=== PATIENT | male | born 1995 | race Caucasian/White ===

== ENCOUNTER 2021-03-29 14:47 | Emergency (ER) | payer MEDICAID ==
[~2021-03-29] VITALS: Ht 165.1 cm; Wt 70.3 kg
[2021-03-29 14:58] VITALS: BP_SYST 136
--- NOTE | 2021-03-29 15:01 | NUR ---
Patient to ER bed 04 to gown for evaluation. Side rails up.
--- NOTE | 2021-03-29 15:36 | NUR ---
PATIENT TO ED AT THIS TIME FOR FREQUENT BOUGHTS OF ANXIETY FOR OVER A LONG PERIOD OF TIME. PATIENT DENIES SI, HI OR HALLUCINATIONS. PATIENT STATES THAT HE HAS NOTICIABLE TREMORS DUE TO EXTREME ANXIETY. PATIENT HAS LOST SEVERAL FAMILY MEMBERS OVER A SHORT PERIOD OF TIME DUE TO COVID. 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 WILL CONTINUE TO MONITOR PATIENT.
[2021-03-29] MEDS ORDERED: LORazepam 1 MG TABLET PO ONE (15:45)
[2021-03-29] MEDS ORDERED: ALPR0.5T PO (17:28)
--- NOTE | 2021-03-29 17:29 | NUR ---
PATIENT REFUSED ATIVAN AND GIVEN 0.5 OF XANAX. PATIENT STATES SHE HAD A VERY BAD REACTION TO ATIVAN WHEN TAKEN BEFORE. XANAX 0.5MG ADMINISTERED AT THIS TIME. VSS.
[2021-03-29] MEDS ORDERED: ALPRAZolam 0.25 MG TABLET PO ONE (17:30)
[2021-03-29 17:34] VITALS: BP_SYST 120
--- NOTE | 2021-03-29 17:34 | NUR ---
PATIENT CONTINUES TO DISPLAY ANXIETY WITH TREMORS WHEN HOLDING A CONVERSATION. PATIENT HAS THE APPEARANCE OF BEING NERVOUS. WILL CONTINUE TO MONITOR PATIENT. HEART RATE LOWER.
--- NOTE | 2021-03-29 18:05 | NUR ---
Patient given written and verbal discharge instructions and verbalizes understanding. ER MD discussed with patient the results and treatment provided. Patient in stable condition. ID arm band removed. I Rx of XANAX given. Patient educated on pain management and to follow up with PMD. Pain Scale 0/10 Opportunity for questions provided and answered. Medication side effect fact sheet provided.
== END 2021-03-29 18:34 | disposition home or self-care (01) ==
LOC: SED 14:47
DX: F43.0 Acute stress reaction (principal); F41.9 Anxiety disorder, unspecified; Z79.899 Other long term (current) drug therapy
CPT/HCPCS: 71045; 93005; 99283